=== PATIENT | male | born 1975 | race Caucasian/White ===

== ENCOUNTER 2020-11-05 08:34 | Outpatient (CLI) | payer OTHER ==
--- NOTE | 2020-11-05 09:24 | MRI ---
Exam: MRI cervical spine without contrast HISTORY: Radiculopathy. Numbness of the first 3 fingers. Symptoms radiate down the left upper extremi ty. COMPARISON: None. FINDINGS: Appropriate T1 marrow signal intensity of the cervical vertebra. Cervical spine vertebral body heigh t is maintained. There is no fracture. There is no significant STIR hyperintensity to suggest ligamentous injury or vertebral body edema. Visualized brain parenchyma, cervicomedullary junction, c ervical cord and the upper thoracic cord have a normal size and signal intensity. C2-C3: No significant central canal stenosis. Patent bilateral neural foramina. C3-C4: No significant central canal stenosis. Mild right foraminal narrowing due to uncovertebral hyp ertrophy. Patent left neural foramen. C4-C5: Broad-based disc bulge abuts the thecal sac. No significant central canal stenosis. Patent stanley ateral neural foramina. C5-C6: Disc desiccation with moderate loss of disc space height. Broad-based disc osteophyte complex with a central/right paracentral component. Mild stenosis of the thecal sac. Moderate to severe right and moderate left foraminal narrowing due to uncovertebral hypertrophy. Prominent anterior oste ophyte at the C5-C6 disc space is noted. C6-C7: Adequate disc hydration. No significant central canal stenosis or significant neural foraminal narrowing. Minimal broad-based disc bulge is identified. C7-T1: No significant central canal stenosis or significant neural foraminal narrowing. IMPRESSION: Degenerative changes of the cervical spine as detailed above. Transcribed Date/Time: 11/05/2020 10:02 AM
== END 2020-11-05 08:35 | disposition home or self-care (01) ==
LOC: SCSMRI 08:34
PROVIDERS: ATTEND Neurological Surgery
DX: M47.22 Other spondylosis with radiculopathy, cervical region (principal)
CPT/HCPCS: 72141

== ENCOUNTER 2025-06-19 12:24 | Outpatient (CLI) | payer OTHER | END 2025-06-19 12:25 | disposition home or self-care (01) | LOC: SCSRAD 12:24 | PROVIDERS: ATTEND Family Medicine Sports Medicine | DX: R10.84 Generalized abdominal pain (principal) | CPT/HCPCS: 74022 ==